=== PATIENT | female | born 1970 | race Caucasian/White ===

== ENCOUNTER 2020-01-17 08:22 | Day surgery (SDC) | payer OTHER ==
[~2020-01-17 08:22] MED LIST: Lactated Ringers 1,000 ML IV SCH; Sodium Chloride 0.9% 10 ML Syringe FLUSH PRN
[2020-01-17] MEDS ORDERED: Propofol 200 MG/20 ML SDV ONE ×2 (09:11→11:00)
[2020-01-17] MEDS ORDERED: fentaNYL 100 MCG/2 ML SDV ONE (09:11)
[2020-01-17] MEDS ORDERED: Midazolam 1 MG/ML 2 ML SDV IVPUSH PRN (09:18)
--- NOTE | 2020-01-18 13:34 | OR ---
DATE OF SURGERY: 01/17/2020. REFERRING PROVIDER: Rosaura Grace MD. PRE-OPERATIVE DIAGNOSES: Screening colonoscopy. This is the patient's first colonoscopy. There is a family history of polyps in the patient's mother. POST-OPERATIVE DIAGNOSES: 1. Total of 10 polyps removed. a. 9 mm x2 and 5 mm polyp x1 at 140 cm (hepatic flexure). All 3 removed with hot snare. b. 3 mm polyp at 130 cm, removed with cold forceps. c. 2 mm polyp x2 at 110 cm, removed with cold forceps. d. 6 mm polyp at 105 cm, removed with hot snare. e. 3 mm polyp at 85 cm, removed with cold forceps. f. 3 mm polyp x2 at 30 cm, removed with cold forceps. 2. Long redundant colon. PROCEDURE: Colonoscopy with polypectomy x10 (4 using hot snare and 6 using cold forceps). SURGEON: Sanjay Cummings M.D. ANESTHESIA: Monitored anesthesia care. BOWEL PREP: Good. Cecile is a 49-year-old female who was brought to the endoscopy suite after discussing risks and benefits of the procedure. Informed consent was obtained for conscious sedation and colonoscopy with or without biopsy and/or polypectomy. We also discussed possibility of missed lesions. Pre-procedure exam was unremarkable. IV, oxygen, and monitors were placed. The patient was placed in the left lateral decubitus position. Sedation was administered and a digital rectal exam was performed which was unremarkable. Colonoscope was passed into the rectum and slowly advanced all the way to the cecum. The patient did have a long redundant colon. Cecum was viewed and photographed. The colonoscope was slowly withdrawn and the mucosa was closed observed in a direct circumferential manner. The ascending colon was unremarkable. At the hepatic flexure, started to note polyps, and a total of [address] out. Please see above for full details. The transverse colon was unremarkable. The descending colon was unremarkable. The sigmoid colon was unremarkable. Retroflexion was performed and rectal mucosa was unremarkable. Scope was removed. The patient tolerated the procedure well. The patient was monitored until that baseline status. Discharge instructions were reviewed and the patient was discharged in good condition. COMPLICATIONS: None. TOTAL TIME: 55 minutes. ESTIMATED BLOOD LOSS: 1 to 2 mL. RECOMMENDATIONS/FOLLOW-UP: We will await results of path report to determine ideal followup interval. I would like to kindly thank Dr. Grace for this referral. DMB: 01/17/2020 13:10:00 MODL: 01/17/2020 16:26:41 /[id number]
== END 2020-01-17 12:40 | disposition home or self-care (01) ==
LOC: VM.SDS 08:22
PROVIDERS: ATTEND Family Medicine
DX: Z12.11 Encounter for screening for malignant neoplasm of colon (principal); D12.3 Benign neoplasm of transverse colon; D12.6 Benign neoplasm of colon, unspecified; F32.9 Major depressive disorder, single episode, unspecified; E66.9 Obesity, unspecified; J45.909 Unspecified asthma, uncomplicated; Z11.59 Encounter for screening for other viral diseases; F17.210 Nicotine dependence, cigarettes, uncomplicated; Z80.0 Family history of malignant neoplasm of digestive organs; Z79.899 Other long term (current) drug therapy; Z68.22 Body mass index [BMI] 22.0-22.9, adult
CPT/HCPCS: 45380; 45385; 87635; J2250; J2704; J3010; J7120; 45384; U0002

== ENCOUNTER 2022-12-09 23:55 | Emergency (ER) | payer BC, OTHER ==
[2022-12-10] MEDS ORDERED: diphenhydrAMINE 50 MG/ML SDV ONE (00:12)
[2022-12-10] MEDS ORDERED: methylPREDNISolone Sodium Succinate 125 MG/2 ML SDV ONE (00:12)
[2022-12-10] MEDS ORDERED: methylPREDNISolone Sodium Succinate 125 MG/2 ML SDV IVPUSH ONE (00:14)
[2022-12-10] MEDS ORDERED: diphenhydrAMINE 50 MG/ML SDV IVPUSH ONE (00:14)
[2022-12-10 00:27] LABS: HEMOGLOBIN 12.1 g/dL (12.0-16.0); IMMATURE GRAN ABSOLUTE AUTO 0.03 x10^3/uL (0.00-0.07); LYMPHOCYTES ABSOLUTE AUTO 0.7 x10^3/uL (1.0-4.8); LYMPHOCYTES PERCENT AUTO 7.5 % (25.0-50.0); MEAN CORPUSCULAR HEMOGLOBIN 31.8 pg (26.0-32.0); MEAN CORPUSCULAR HGB CONC 34.6 g/dL (32.0-36.0); MEAN CORPUSCULAR VOLUME 91.9 fL (78.0-93.0); MONOCYTES ABSOLUTE AUTO 0.2 x10^3/uL (0.0-0.8); NEUTROPHILS ABSOLUTE AUTO 8.6 x10^3/uL (1.8-7.7); NEUTROPHILS PERCENT AUTO 90.2 % (50.0-80.0); PLATELET COUNT,PLT 333 x10^3/uL (130-400); RED BLOOD CELL COUNT 3.81 x10^6/uL (4.00-5.50); WHITE BLOOD CELL COUNT,WBC 9.5 x10^3/uL (4.0-10.0)
[2022-12-10 00:45] LABS: A/G RATIO 1.23; ALANINE AMINOTRANSFERASE,ALT 22 U/L (14-59); ALBUMIN 3.7 g/dL (3.4-5.0); ALKALINE PHOSPHATASE 71 U/L (46-116); ANION GAP 17.7 mmol/L (5-15); ASPARTATE AMNIOTRANSFERASE,AST 10 U/L (15-37); BILIRUBIN TOTAL 0.2 mg/dL (0.2-1.0); BLOOD UREA NITROGEN,BUN 8 mg/dL (7-18); C-REACTIVE PROTEIN < 0.2 mg/dL (<=0.9); CALCIUM 8.8 mg/dL (8.5-10.1); CARBON DIOXIDE,CO2 19 mmol/L (21-32); CHLORIDE,CL 102 mmol/L (98-107); CREATINE KINASE,CK 75 U/L (26-192); CREATININE 0.7 mg/dL (0.55-1.02); ESTIMATED GFR 103 mL/min (>=60); GLUCOSE RANDOM 129 mg/dL (70-99); LACTATE DEHYDROGENASE,LDH 149 U/L (81-234); POTASSIUM,K 3.7 mmol/L (3.5-5.1); PROTEIN TOTAL,TP 6.7 g/dL (6.4-8.2); SODIUM,NA 135 mmol/L (136-145)
== END 2022-12-10 01:46 | disposition home or self-care (01) ==
LOC: VM.ED 23:55
DX: T78.40XA Allergy, unspecified, initial encounter (principal); Z91.048 Other nonmedicinal substance allergy status
CPT/HCPCS: 71046; 80053; 82550; 83615; 84484; 85025; 85379; 86140; 93005; 96374; 96375; 99285-25; J1200; J2930

== ENCOUNTER 2023-12-11 20:15 | Emergency (ER) | payer BC, OTHER ==
[2023-12-11 20:47] LABS: BASOPHILS PERCENT AUTO 0.5 % (0.2-1.2); EOSINOPHILS ABSOLUTE AUTO 0.2 x10^3/uL (0.0-0.5); EOSINOPHILS PERCENT AUTO 3.1 % (0.0-4.0); HEMATOCRIT 35.1 % (33.0-47.0); HEMOGLOBIN 12.4 g/dL (12.0-16.0); IMMATURE GRAN ABSOLUTE AUTO 0.01 x10^3/uL (0.00-0.07); LYMPHOCYTES ABSOLUTE AUTO 2.1 x10^3/uL (1.0-4.8); LYMPHOCYTES PERCENT AUTO 34.4 % (25.0-50.0); MEAN CORPUSCULAR HEMOGLOBIN 29.5 pg (26.0-32.0); MEAN CORPUSCULAR HGB CONC 35.3 g/dL (32.0-36.0); MEAN CORPUSCULAR VOLUME 83.4 fL (78.0-93.0); MONOCYTES ABSOLUTE AUTO 0.5 x10^3/uL (0.0-0.8); MONOCYTES PERCENT AUTO 7.5 % (2.0-11.0); NEUTROPHILS ABSOLUTE AUTO 3.3 x10^3/uL (1.8-7.7); NEUTROPHILS PERCENT AUTO 54.3 % (50.0-80.0); PLATELET COUNT,PLT 279 x10^3/uL (130-400); RED BLOOD CELL COUNT 4.21 x10^6/uL (4.00-5.50)
[2023-12-11] MEDS: Alum Hydrox/Mag Hydrox/Simeth 30 ML, Lidocaine 2% 15 ML, Promethazine 12.5 MG PO ONE (20:54)
[2023-12-11 21:01] LABS: A/G RATIO 1.31; ALBUMIN 3.8 g/dL (3.4-5.0); ANION GAP 17.8 mmol/L (5-15); BILIRUBIN TOTAL 0.4 mg/dL (0.2-1.0); CALCIUM 8.9 mg/dL (8.5-10.1); CREATININE 0.9 mg/dL (0.55-1.02); EST CRCL DRUG DOSING (CG) 72.08 mL/min; POTASSIUM,K 3.8 mmol/L (3.5-5.1); PROTEIN TOTAL,TP 6.7 g/dL (6.4-8.2)
[2023-12-11] MEDS: Famotidine 20 MG/2 ML SDV IVPUSH ONE (21:50)
[2023-12-11] MEDS: Sodium Chloride 0.9% 1,000 ML IV ONE (21:50)
[2023-12-11] MEDS: Ondansetron 4 MG/2 ML SDV IVPUSH ONE (21:52)
[2023-12-11] MEDS: Morphine 4 MG/ML Syringe IVPUSH ONE (22:30)
== END 2023-12-11 22:40 | disposition home or self-care (01) ==
LOC: VM.ED 20:15
DX: K25.9 Gastric ulcer, unspecified as acute or chronic, without hemorrhage or perforation (principal); E87.1 Hypo-osmolality and hyponatremia; Z91.018 Allergy to other foods; Z79.899 Other long term (current) drug therapy; Z90.49 Acquired absence of other specified parts of digestive tract; Z90.710 Acquired absence of both cervix and uterus
CPT/HCPCS: 36415; 80053; 85025; 96361; 96374; 96375; 99284; 99284-25; A9270-GY; J2270; J2405; J3490; J7030

== ENCOUNTER 2023-12-19 17:35 | Emergency (ER) | payer BC ==
[2023-12-19 18:07] LABS: BASOPHILS PERCENT AUTO 0.2 % (0.2-1.2); EOSINOPHILS ABSOLUTE AUTO 0.2 x10^3/uL (0.0-0.5); EOSINOPHILS PERCENT AUTO 2.1 % (0.0-4.0); HEMATOCRIT 35.9 % (33.0-47.0); HEMOGLOBIN 12.6 g/dL (12.0-16.0); LYMPHOCYTES ABSOLUTE AUTO 1.6 x10^3/uL (1.0-4.8); LYMPHOCYTES PERCENT AUTO 20.2 % (25.0-50.0); MEAN CORPUSCULAR HEMOGLOBIN 29.2 pg (26.0-32.0); MEAN CORPUSCULAR HGB CONC 35.1 g/dL (32.0-36.0); MEAN CORPUSCULAR VOLUME 83.3 fL (78.0-93.0); MONOCYTES ABSOLUTE AUTO 0.5 x10^3/uL (0.0-0.8); MONOCYTES PERCENT AUTO 6.6 % (2.0-11.0); NEUTROPHILS ABSOLUTE AUTO 5.7 x10^3/uL (1.8-7.7); NEUTROPHILS PERCENT AUTO 70.9 % (50.0-80.0); PLATELET COUNT,PLT 295 x10^3/uL (130-400); RED BLOOD CELL COUNT 4.31 x10^6/uL (4.00-5.50)
[2023-12-19] MEDS: HYDROmorphone 1 MG/ML Syringe IVPUSH ONE ×2 (18:13→19:23)
[2023-12-19] MEDS: Metoclopramide 10 MG/2 ML SDV IVPUSH ONE (18:16)
[2023-12-19] MEDS: Famotidine 20 MG/2 ML SDV IVPUSH ONE (18:19)
[2023-12-19] MEDS: Lactated Ringers 1,000 ML IV SCH (18:25)
[2023-12-19 18:26] LABS: A/G RATIO 1.1; ALBUMIN 3.4 g/dL (3.4-5.0); BILIRUBIN TOTAL 0.3 mg/dL (0.2-1.0); CALCIUM 8.7 mg/dL (8.5-10.1); CREATININE 0.8 mg/dL (0.55-1.02); EST CRCL DRUG DOSING (CG) 81.1 mL/min; PROTEIN TOTAL,TP 6.5 g/dL (6.4-8.2)
[2023-12-19] MEDS: Alum Hydrox/Mag Hydrox/Simeth 30 ML, Lidocaine 2% 15 ML, Promethazine 12.5 MG PO ONE (18:46)
[2023-12-19] MEDS: Iopamidol 612 MG/ML 100 ML Bottle IVPUSH ONE (19:46)
[2023-12-19] MEDS: Take Home: Acetaminophen/oxyCODONE 325-5 MG, 5 Tab Pack PO ONE (20:38)
== END 2023-12-19 20:50 | disposition home or self-care (01) ==
LOC: VM.ED 17:35
DX: K29.70 Gastritis, unspecified, without bleeding (principal); F17.210 Nicotine dependence, cigarettes, uncomplicated; Z91.018 Allergy to other foods; Z79.899 Other long term (current) drug therapy; Z90.49 Acquired absence of other specified parts of digestive tract
CPT/HCPCS: 74177; 80053; 83690; 85025; 96361; 96374; 96375; 96376; 99284; 99284-25; A9270-GY; J1170; J2765; J3490; J7120; Q9967

== ENCOUNTER 2024-10-01 18:41 | Emergency (ER) | payer BC, OTHER ==
[2024-10-01 19:05] LABS: BASOPHILS PERCENT AUTO 0.2 % (0.2-1.2); EOSINOPHILS PERCENT AUTO 0.7 % (0.0-4.0); HEMATOCRIT 32.2 % (33.0-47.0); HEMOGLOBIN 10.6 g/dL (12.0-16.0); IMMATURE GRAN ABSOLUTE AUTO 0.01 x10^3/uL (0.00-0.07); LYMPHOCYTES ABSOLUTE AUTO 0.7 x10^3/uL (1.0-4.8); LYMPHOCYTES PERCENT AUTO 12.1 % (25.0-50.0); MEAN CORPUSCULAR HEMOGLOBIN 27.4 pg (26.0-32.0); MEAN CORPUSCULAR HGB CONC 32.9 g/dL (32.0-36.0); MEAN CORPUSCULAR VOLUME 83.2 fL (78.0-93.0); MONOCYTES ABSOLUTE AUTO 0.3 x10^3/uL (0.0-0.8); NEUTROPHILS ABSOLUTE AUTO 4.3 x10^3/uL (1.8-7.7); NEUTROPHILS PERCENT AUTO 80.8 % (50.0-80.0); PLATELET COUNT,PLT 250 x10^3/uL (130-400); RED BLOOD CELL COUNT 3.87 x10^6/uL (4.00-5.50); WHITE BLOOD CELL COUNT,WBC 5.4 x10^3/uL (4.0-10.0)
[2024-10-01] MEDS: Albuterol/Ipratropium 3.0-0.5 MG/3 ML Neb Soln NEB ONE (19:10)
[2024-10-01 19:21] LABS: A/G RATIO 1.03; ALBUMIN 3.3 g/dL (3.4-5.0); BILIRUBIN TOTAL 0.2 mg/dL (0.2-1.0); CALCIUM 8.3 mg/dL (8.5-10.1); CREATININE 1.1 mg/dL (0.55-1.02); EST CRCL DRUG DOSING (CG) 58.29 mL/min; PROTEIN TOTAL,TP 6.5 g/dL (6.4-8.2)
[2024-10-01] MEDS: Acetaminophen 500 MG Tab PO ONE (19:23)
[2024-10-01] MEDS: predniSONE 20 MG Tab PO ONE (19:53)
[2024-10-01] MEDS: Take Home: Albuterol 18 GM Inhaler, 1 Inhaler Pack INH PRN (19:53)
== END 2024-10-01 19:58 | disposition home or self-care (01) ==
LOC: VM.ED 18:41
DX: J40 Bronchitis, not specified as acute or chronic (principal); Z91.018 Allergy to other foods; Z79.899 Other long term (current) drug therapy; F17.210 Nicotine dependence, cigarettes, uncomplicated
CPT/HCPCS: 71046; 80053; 85025; 87428; 99285; A9270; J7512; 36415; J7620-GY